=== PATIENT | male | born 1950 | race Caucasian/White ===

== ENCOUNTER 2017-01-09 17:53 | Emergency (ER) | payer MEDICARE, BC, OTHER ==
[~2017-01-09] VITALS: Ht 175.3 cm; Wt 77.0 kg
[~2017-01-09 17:53] MED LIST: FENO160T2 PO; FLON0.053; ZOFR4TAB3 SL
[2017-01-09 18:10] VITALS: BP 136/77; PULSE 73; RESP 16; TEMP 98.7; O2SAT 96
[2017-01-09] MEDS ORDERED: FENO160T PO (19:55)
--- NOTE | 2017-01-09 20:13 | PD ---
HPI . left arm puncture wound from palm tree Chief Complaint: Wound/Suture/Staple Re-Check Time Seen by Provider: 19:55 Travel History International Travel<30 days: No Contact w/Intl Traveler<30days: No Traveled to known affect area: No History of Present Illness HPI 66-year-old male with hypertriglyceridemia here with complaints of a left arm puncture wound from a palm frond while working in his yard. Patient says the leaf stuck him in his left forearm. He immediately cleaned the area, but is concerned about infection. He does not recall the last date of tetanus. He denies any pruritus to the area. He does not have any significant pain. No other complaints. PFSH Past Medical History Hx Anticoagulant Therapy: No Cancer: Yes (Prostate ) Diabetes: No Immunizations Current: Yes Triglycerides - High: Yes Tetanus Vaccination: > 5 Years Influenza Vaccination: No Past Surgical History Prostatectomy: Yes (Cancer) Tonsillectomy: Yes (& adenoids) Other Surgery: Yes (Benign mass right side neck removed ) Social History Alcohol Use: Yes (Occ.) Tobacco Use: No Substance Use: No Allergies-Medications (Allergen,Severity, Reaction): Coded Allergies: No Known Allergies (Unverified , 01/09/17) Reported Meds & Prescriptions Reported Meds & Active Scripts Active Bactrim DS (Sulfamethoxazole-Trimethoprim) 800-160 Mg Tab 1 Tab PO BID Reported Fenofibrate 160 Mg Tab 160 Mg PO DAILY Review of Systems General / Constitutional: No: Fever Eyes: No: Visual changes HENT: No: Headaches Cardiovascular: No: Chest Pain or Discomfort Respiratory: No: Shortness of Breath Gastrointestinal: No: Abdominal Pain Genitourinary: No: Dysuria Musculoskeletal: No: Pain Skin: Positive Other (left forearm puncture wound), No Rash Neurologic: No: Weakness Psychiatric: No: Depression Endocrine: No: Polydipsia Hematologic/Lymphatic: No: Easy Bruising Physical Exam Narrative GENERAL: AAO x 3, no acute distress, Well-nourished, well-developed patient. SKIN: Warm and dry. No visible rashes or bruising. mild erythema to left forearm ventral side, small puncture wound visible but is already closed. HEAD: Normocephalic and atraumatic. EYES: No scleral icterus. No injection or drainage. ENT: No nasal drainage noted. Mucous membranes pink. Airway patent. NECK: Supple, trachea midline. No JVD. CARDIOVASCULAR: Regular rate and rhythm without murmurs, gallops, or rubs. RESPIRATORY: Breath sounds equal bilaterally. No accessory muscle use. No rhonchi or rales. GASTROINTESTINAL: Abdomen soft, non-tender, nondistended. EXTREMITIES: No cyanosis or edema. BACK: Nontender without obvious deformity. No CVA tenderness. PSYCH: AAO x 3, normal affect. Data Data Last Documented VS Vital Signs Date Time Temp Pulse Resp B/P Pulse Ox O2 Delivery O2 Flow Rate FiO2 01/09/17 18:10 98.7 73 16 136/77 96 Orders Tetanus/Diphtheria Tox Adult (Tetanus/Di (01/09/17 20:15) MDM Medical Decision Making Medical Screen Exam Complete: Yes Emergency Medical Condition: Yes Medical Record Reviewed: Yes Differential Diagnosis puncture wound, cellulitis, less likely allergic reaction Narrative Course 25-year-old female with past history significant for recurrent strep throat here with complaints of strep throat again. Patient says she is almost she has strep throat. She is complaining of a sore throat. She admits to seeing white spots in the back of her throat. She denies any fever chills but she has no other symptoms. Patient seen and examined. There is a small puncture wound to the left forearm with surrounding erythema. no edema or temperature variation Recommend xray, but patient declined stating he doesn't think fb present. he also does not want to be in ER much longer. Tetanus and bactrim to cover mild cellulitis and possible MRSA Patient verbalized understanding of instructions, questions were answered, and thanked me for their care. I advised them if their condition worsens, please return to the nearest emergency room for further care. Diagnosis Primary Impression: Cellulitis of forearm, left Patient Instructions: Acute Wound Care (ED), Cellulitis (ED), General Instructions Additional Instructions: Watch for signs of infection: fever, redness, swelling, warmth, pus or drainage , red streaks around the cut, and increased pain from the area. Return to emergency department if any worsening. you received a tetanus shot, you may experience tenderness at the injection site. This is normal. Scripts Sulfamethoxazole-Trimethoprim (Bactrim DS)800-160 Mg Tab1 Tab PO BID #20 TAB Prov:Jabari Howell MD 3/28/17 Disposition: 01 DISCHARGE HOME Condition: Stable Mangali,Tami PA Jan 09, 2017 20:13
[2017-01-09] MEDS ORDERED: BACT800T5 PO (20:14)
[2017-01-09] MEDS ORDERED: TETANUS/DIPHTHERIA TOXOID ADULT 0.5 ML VIAL IM ONE (20:15)
== END 2017-01-09 20:20 | disposition home or self-care (01) ==
LOC: PHED 17:53 → PHEFT 20:20
DX: L03.114 Cellulitis of left upper limb (principal); E78.1 Pure hyperglyceridemia; Z23 Encounter for immunization
CPT/HCPCS: 90471; 90714